=== PATIENT | male | born 1985 | race Caucasian/White ===

== ENCOUNTER 2018-02-07 14:22 | Emergency (ER) | payer MEDICAID ==
[~2018-02-07] VITALS: Ht 175.3 cm; Wt 83.9 kg
[2018-02-07 15:05] LABS: Basophils # (auto) 0.1 uL; Basophils % (auto) 1.6 % (0.0-2.0); Eosinophils # (auto) 0 uL; Hematocrit 48.3 % (41.0-53.0); Hemoglobin 16.7 g/dL (13.5-17.5); Lymphocytes # (auto) 1.5 uL; Lymphocytes % (auto) 32.4 % (10.0-50.0); Mean Corpuscular Hemoglobin 31.4 pg (28.0-32.0); Mean Corpuscular Hgb Conc. 34.6 g/dL (32.0-36.0); Mean Corpuscular Volume 90.5 fL (80.0-100.0); Monocytes # (auto) 0.3 uL; Monocytes % (auto) 6.8 % (0.0-12.0); Neutrophils # (auto) 2.6 uL; Neutrophils % (auto) 58.2 % (37.0-80.0); Nucleated Red Blood Cells % 0.3 %; Platelet Count (auto) 223 10^3/uL (140-450); Red Blood Cells 5.34 10^6/uL (4.5-5.90); Red Cell Distribution Width 12.8 % (11.8-14.3); White Blood Cell 4.5 10^3/uL (4.4-10.8)
[2018-02-07 15:19] LABS: Acetaminophen < 2.0 ug/mL (10-30); Salicylate < 1.7 mg/dL (2.8-20.0)
[2018-02-07 15:24] LABS: Albumin 4.5 g/dL (3.4-5.0); BUN/Creatinine Ratio 22.8; Calcium 9.1 mg/dL (8.5-10.1)
[2018-02-07 15:26] LABS: Bilirubin, Total 0.8 mg/dL (0.2-1.0); Total Protein 8.1 g/dL (6.4-8.2)
[2018-02-07 15:43] LABS: Alcohol, Urine < 3.0 mg/dL (0-5); Amphetamine Screen, Urine NEGATIVE (NEGATIVE); Barbiturate Scree,Urine NEGATIVE (NEGATIVE); Benzodiazephine Screen, Urine NEGATIVE (NEGATIVE); Cannabinoid Screen, Urine NEGATIVE (NEGATIVE); Cocaine Screen, Urine NEGATIVE (NEGATIVE); Opiate Scree,Urine NEGATIVE (NEGATIVE); Phencyclidine Screen, Urine NEGATIVE (NEGATIVE)
[2018-02-07 15:51] LABS: Urine Bacteria NONE SEEN /hpf (None Seen); Urine Blood Negative /uL (Negative); Urine Mucus FEW (None Seen); Urine Specific Gravity 1.035 (1.001-1.035); Urine WBC 4 /hpf (0 - 3)
[2018-02-08] MEDS ORDERED: OLANZapine 5 MG TAB PO PRN (00:15)
[2018-02-08] MEDS: OLANZapine 5 MG TAB PO SCH ×2 (10:57→21:16)
[2018-02-09] MEDS: OLANZapine 5 MG TAB PO SCH ×2 (09:19→23:05)
[2018-02-10] MEDS: OLANZapine 5 MG TAB PO SCH ×2 (10:00→22:00)
[2018-02-11] MEDS ORDERED: OLANZapine 5 MG TAB ONE (07:21)
[2018-02-11] MEDS: OLANZapine 5 MG TAB PO SCH (10:18)
[2018-02-11] MEDS ORDERED: QUEtiapine FUMARATE 25 MG TAB PO ONE (11:28)
[2018-02-11] MEDS ORDERED: LORazepam 0.5 MG TAB PO PRN (11:30)
[2018-02-11] MEDS ORDERED: QUEtiapine FUMARATE 25 MG TAB PO SCH (11:40)
[2018-02-12] MEDS: OLANZapine 5 MG TAB PO SCH (10:20)
[2018-02-13 06:54] VITALS: BP 115/61
[2018-02-13] MEDS: OLANZapine 5 MG TAB PO SCH (10:45)
== END 2018-02-13 18:27 | disposition home or self-care (01) ==
LOC: ER 14:26
DX: F29 Unspecified psychosis not due to a substance or known physiological condition (principal); F32.9 Major depressive disorder, single episode, unspecified; F20.9 Schizophrenia, unspecified
CPT/HCPCS: 36415; 71046; 80053; 80307; 80329; 81001; 85025; 93005